=== PATIENT | female | born 1940 | race Caucasian/White ===

== ENCOUNTER 2018-05-25 14:28 | Inpatient (IN) | payer OTHER, BC ==
--- NOTE | 2018-05-25 14:36 | EDPHY ---
H & P Time Seen by Provider: 05/25/18 14:45 HPI/ROS: CHIEF COMPLAINT: Fall, facial trauma HISTORY OF PRESENT ILLNESS: The patient is a 78 y/o female with dementia arriving via EMS with her son for evaluation of facial trauma secondary to a fall this afternoon. She is unable to tell me what happened. Her son says she was walking away from him quickly because she didn't know who he was and tripped on a curb. He witnessed her strike her knee, possibly her chest, and then her face on the ground as she fell. She did not lose consciousness. She does not have any specific complaints at this time. Her son says it's very hard to tell if her mental status is worse than baseline or not. She is on a daily low-dose aspirin. Her son notes she struck her right hand on a bedpost 2 days ago and has had some localized swelling. REVIEW OF SYSTEMS: A ten point review of systems was performed and is negative with the exception of the items mentioned in the HPI. Past medical history: Advanced dementia possibly Alzheimer's, bipolar, hyperlipidemia, hypertension Past surgical history: noncontributory Family history: noncontributory Social history: Son at bedside. Visiting, lives in [facility] with 24-hour assistance. Former smoker 30 years ago. No recent alcohol use. Previously worked in real estate. Daughter by suicide 5 years ago. General Appearance: Alert. Vital signs reviewed. Head: 2cmx1.5cm swelling to glabella with overlying abrasion. No scalp tenderness. No palpable skull fracture. Eyes: Pupils equal and round, no conjunctival injection, no discharge. Anicteric. ENT, Mouth: Mucous membranes are moist, no oropharyngeal erythema or edema. Abrasion to bridge of nose and along right side of nose, no septal hematoma or deviation. No hemotympanum bilaterally. Node dental injury. Neck: No lymphadenopathy, supple, nontender to palpation over the cervical spine in the midline. Respiratory: Lungs are clear to auscultation; no wheezes, rales, or rhonchi. Cardiovascular: Regular rate and rhythm; no murmur, rub, or gallop. Gastrointestinal: Abdomen is soft and nontender, no masses or organomegaly, bowel sounds normal. Skin: Warm and dry, no rashes on exposed skin, normal color. Back: Nontender to palpation over the thoracolumbar spine. No CVAT. Extremities: No lower extremity edema, no calf tenderness or swelling. Right hand swollen with purple-brown ecchymosis, normal ROM of right wrist and all digits of right hand. Neurological: Alert and disoriented, likely at baseline. Moving all four extremities easily and equally. CARLOS. EOMI. Facial expressions symmetric. Tongue midline. Psychiatric: Normal affect. Constitutional: Initial Vital Signs Temperature (C) 36.0 C 05/25/18 14:38 Heart Rate 81 05/25/18 14:38 Respiratory Rate 18 05/25/18 14:38 Blood Pressure 134/84 H 05/25/18 14:38 O2 Sat (%) 90 L 05/25/18 14:38 O2 Delivery Mode Room Air Allergies/Adverse Reactions: No Known Allergies Allergy (Unverified 05/25/18 14:49) Home Medications: Medication Instructions Recorded Amlodipine Bes/Olmesartan Med 1 each PO DAILY 05/25/18 [Roberta 5-20 mg Tablet] Atorvastatin Calcium [Lipitor 20 20 mg PO DAILY 05/25/18 mg (*)] Cholecalciferol Vit D3 [Vitamin D3 1,000 units PO DAILY 05/25/18 (*)] Cyanocobalamin/Folic AC/Vit B6 1 each PO DAILY 05/25/18 [Folbee Tablet] Donepezil HCl [Aricept 5 MG (*)] 5 mg PO HS 05/25/18 Fesoterodine Fumarate [Toviaz (*)] 8 mg PO HS 05/25/18 Gabapentin [Neurontin 300 MG (*)] 300 mg PO HS 05/25/18 Gabapentin [Neurontin 300 MG (*)] 300 mg PO HS PRN 05/25/18 Memantine HCl [Namenda 5 mg (*)] 5 mg PO BID 05/25/18 Metoprolol Succinate Xr [Toprol Xl 50 mg PO DAILY 05/25/18 50 mg (*)] Nortriptyline HCl [Pamelor 25 mg 25 - 50 mg PO HS 05/25/18 (*)] OLANZapine [Zyprexa] 10 mg PO DAILY 05/25/18 Oxcarbazepine [Trileptal] 150 mg PO DAILY 05/25/18 Oxcarbazepine [Trileptal] 300 mg PO HS 05/25/18 Oxybutynin Chloride [Oxybutynin 15 mg PO DAILY 05/25/18 Chloride Er] Sennosides 8.6 mg PO 05/25/18 amLODIPine BESYLATE [Norvasc 10 mg 10 mg PO DAILY 05/25/18 (*)] traZODone [traZODONE 50MG (*)] 100 mg PO HS 05/25/18 Medical Decision Making - Diagnostics Imaging Results: Imaging Impressions Head CT 05/25/18 15:20 Impression: 1. Small frontal scalp hematoma. 2. No acute fracture or evidence of acute intracranial injury. Findings discussed with Emergency Department physician, Leticia Myers on 2017, 15:57. Imaging: Discussed imaging studies w/ director call Radiologist, I viewed and interpreted images myself ED Course/Re-evaluation: Plan for head CT and wound care. 1510: Spoke with patient's son outside the room. He says, "I want some guidance " regarding long-term placement, stabilization of her medications, and current plan. He initially planned to bring her to [facility] living here locally rather than attempting to set up care remotely in [place] where she normally lives. He is currently having her stay with him in [place] and he is providing 24-hour care for her, but the situation is unsustainable. He reports she can get agitated and frustrated easily. She is up most of the night. Today she became scared when she didn't recognize him as he tried to help her get into the car. This led to her walking away quickly and then tripping and getting injured. He says, "I think the right thing for her is to go to memory care." He would like her to be in this area, not in [place]. Plan to involve case management in determining care and facility options. She was initially evaluated for cognitive decline three years ago, at which time he was told that she likely had dementia. That diagnosis has become clear over the past couple of years. She is currently living in [place] with care at home. Head CT: negative She is noted to have a pulse ox of 90% at triage. [place] is [place] from [place]. Lungs are clear, respiratory rate is normal. I do not suspect pulmonary infection or heart failure. She is not complaining of feeling short of breath. Will recheck pulse oximetry. Spoke with hospitalist service. Dr. Mullen accepts admission. Differential Diagnosis: I considered a differential that includes but is not limited to skull or facial bone fracture, intracranial hemorrhage, CVA, laceration, infection, and dementia. Departure - Departure Disposition: [facility] In[facility] Acute Clinical Impression: Dementia Qualifiers: Dementia type: Alzheimer's disease Alzheimer's disease onset: unspecified onset Dementia behavioral disturbance: without behavioral disturbance Qualified Code(s): G30.9 - Alzheimer's disease, unspecified Condition: Fair Report Scribed for: Leticia Myers Report Scribed by: Dai Lamb Date of Report: 05/25/18 Time of Report: 14:57 Physician Review and Approval Statement: 05/25/18 14:36 Portions of this note were transcribed by the medical dir. I, Dr. Leticia Myers, personally performed the history, physical exam, and medical decision- making; and confirmed the accuracy of the information in the transcribed note.
[2018-05-25] MEDS ORDERED: ACETAMINOPHEN 325 MG TAB PO PRN (16:51)
[2018-05-25] MEDS ORDERED: ONDANSETRON 4 MG/2 ML VIAL IVP PRN (16:51)
[2018-05-25] MEDS ORDERED: ONDANSETRON DISINTEGRATING 4 MG TAB PO PRN (16:51)
--- NOTE | 2018-05-25 19:52 | GHP ---
[f rep st] HISTORY AND PHYSICAL DATE OF ADMISSION: 05/25/2018 CHIEF COMPLAINT: Agitation, fall. PRIMARY NEUROPSYCHIATRIST: Dr. Vickers, . PCP: Dr. Melissa Galo, . HPI: History is obtained from her son, she cannot fully recall with dementia. A 78-year-old female who just arrived in [place] with her son last night, because he is moving her here to help care for her. She became very agitated today and did not recognize him. He was trying to get her in the car, but she walked away quickly and tripped on the curb, hitting her knees and her head. She did not black out. She does not have any specific complaints upon my exam. Per son, she has not been sleeping for the last 3 weeks and recently hospitalized for a UTI. Her neuropsychologist increased some of her meds to help with sleep. He stayed in her room last night and she was up 9 times for urination. No nausea, vomiting, or diarrhea. In [place], she had 25/05 care. His plan was to have her admitted to [facility], but they did not have a bed available today. REVIEW OF SYSTEMS: I completed a 10-point review of systems, negative except noted in the HPI. PAST MEDICAL HISTORY: Dementia, hypothyroidism, insomnia. The son is unclear of full history. We will obtain records from PCP. PAST SURGICAL HISTORY: None. FAMILY HISTORY: Daughter committed suicide. SOCIAL HISTORY: Was living in [place] until yesterday. Son lives here in [place]. Former smoker 30 years ago. No recent alcohol or illicits. 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 HOME MEDICATIONS: Aspirin 81 daily, metoprolol 75 daily, Synthroid 88 mcg, Trileptal 150 daily, 300 mg at bedtime; Zyprexa 15 mg daily; Pamelor 50 mg at bedtime; gabapentin 300 mg at bedtime, 300 p.r.n.; Toviaz 8 mg at bedtime; Aricept 5 mg daily; vitamins; atorvastatin 20; amlodipine 10 daily. ALLERGIES: None. PHYSICAL EXAMINATION: VITAL SIGNS: Temperature 37.3, blood pressure 170/80, heart rate is in the 80s, respirations 16, 97% on room air. GENERAL: Well appearing, sitting in bed, no acute distress. HEENT: Abrasions over nose and forehead. Moist mucous membranes. CV: Regular rate and rhythm. LUNGS: Clear. ABDOMEN: Soft, nontender and nondistended. Positive bowel sounds. : No Gaviria. MUSCULOSKELETAL: Moving all 4 extremities. NEUROLOGIC: Two through 12 intact. PSYCH: She is alert, answering some questions appropriately , not agitated. SKIN: Has abrasion over right knee. LABS: Labs and UA are pending. ASSESSMENT/PLAN: 1. Alzheimer dementia with agitation: Case Management to meet with son tomorrow for placement in memory care unit. Currently not agitated. Resume home medications. Obtain records from her primary neuropsychiatrist, Dr. Vickers. 2. Fall: mechanical. CTH negative except for hematoma. She is walking around the room without assistance. 3. Hypothyroidism: Synthroid. 4. Hyperlipidemia: Statin. 5. Suspected hypertension. Metoprolol, Norvasc 6. Diet: Regular. 7. Deep venous thrombosis prophylaxis: Lovenox. DISPOSITION: The patient warrants inpatient admission for fall, evaluation for urinary tract infection and Case Management to assist with placement. /[id number]/MODL MTDD
[2018-05-25] MEDS: OXcarbazepine 300 MG TAB PO SCH (20:49)
[2018-05-25] MEDS ORDERED: NORTRIPTYLINE HCL 25 MG CAP PO SCH (21:00)
[2018-05-25] MEDS: MELATONIN 3 MG TAB PO SCH (23:13)
[2018-05-25] MEDS ORDERED: LORazepam 2 MG/ML INJ IVP ONE (23:54)
[2018-05-26] MEDS ORDERED: LORazepam 2 MG/ML INJ ONE (00:03)
[2018-05-26] MEDS ORDERED: LORazepam 2 MG/ML INJ IVP ONE (00:30)
[2018-05-26] MEDS ORDERED: OLANZapine 10 MG/2 ML VIAL IM ONE (00:31)
--- NOTE | 2018-05-26 02:12 | HOSPPROG ---
Hospitalist Progress Note Assessment/Plan: Hospitalist night float note Patient developed increasing agitation and restlessness over the course of the evening from time of admission. Patient is restless and she is not able to stay in her room. She is walking around the hallways alongside staff. She is not oriented to place and believes that she is in her home and that the nursing staff are intruding upon her space. she is demanding that they leave. She is intermittently yelling loudly in the hallway and nursing staff reported that she 2 staff members requiring security. Patient was given IV Ativan and subsequently a dose of 5 mg IM Zyprexa neither of which produce any notable response. Patient is routinely on 15 mg of Zyprexa p.o. However she is adamantly refusing any oral medications as she is very distressful of the nursing staff. It is unclear if she took her morning dose of Zyprexa before arriving to [place]. It is reported in the H&P however that patient has not slept in almost 3 weeks. Patient continues to try to get up out of bed. She is quite agile in quick on her feet. Attempts were made to contact the patient's son however there was no response. At this time for patient and staff safety it is felt she requires Two point soft limb restraints ordered. Patient is quite coordinated despite her declining memory she will likely to be able to remove a roll belt easily. Objective: Vital Signs Temp Pulse Resp BP Pulse Ox 36.8 C 74 18 156/84 H 90 L 05/25/18 22:47 05/25/18 22:47 05/25/18 22:47 05/25/18 22:47 05/25/18 22:47 Laboratory Results 05/25/18 17:15 05/25/18 17:15 ICD10 Worksheet Patient Problems: Problems Problem Status Onset Dementia Acute
[2018-05-26] MEDS: LEVOTHYROXINE 88 MCG TAB PO SCH (05:47)
--- NOTE | 2018-05-26 07:53 | HOSPPROG ---
Hospitalist Progress Note Assessment/Plan: Patient is a 78-year-old woman who has significant dementia. Her son moved her to [place]. She has not been sleeping for approximately 3 weeks and was recently hospitalized for urinary tract infection. Today is my 1st encounter with the patient. Chart reviewed. * Alzheimer dementia with agitation -it appears the patient needs placement -reviewed the patient's care with Dr. Wheeler and the patient was quite agitated last night and was a flight risk -have a call into psychiatry and neurology -her son, Connor, moved her here due to concern of her care in [place], he is fine with adjusting her meds -she took fall landing on her face -she is only oriented to herself, doesn't know who her son is * Mechanical Fall: -CT scan shows nothing acute * Hypothyroidism: Synthroid. * Hyperlipidemia: Statin. * Suspected hypertension. Metoprolol. * hx of bipolar disorder: difficult balance with treating her bipolar and severe dementia *Plan: will ask both neurology and psychiatry help manage her medications, she has both Bipolar disorder mixed w Alzheimer, hasn't slept in multiple nights. The son is very realistic about the balance of this. Have reviewed with him that many of the medications have black box warnings. He is aware and is fine with these medications. Spoke with psychiatry and Dr Bass will see her, left a message for Dr Salmeron to see her. He has requested for further eval by neurology and psychiatry here in [place]. Reviewed with the son and he is her MPOA, he wants her to be a DNR , Her PCP is Melissa Galo [phone] ( in [place]). If psychiatry and neurology aren't able to see today, will do a trial of Seroabram gaona. Subjective: Tiny smiles, says she isn't in pain. Objective: Vital Signs Temp Pulse Resp BP Pulse Ox 36.1 C 80 16 184/93 H 89 L 05/26/18 04:00 05/26/18 04:00 05/26/18 04:00 05/26/18 04:00 05/26/18 04:00 Laboratory Results 05/25/18 17:15 05/25/18 17:15 - Physical Exam Constitutional: no apparent distress, appears nourished Eyes: PERRL Ears, Nose, Mouth, Throat: hearing normal Cardiovascular: regular rate and rhythym Respiratory: no respiratory distress Gastrointestinal: normoactive bowel sounds Skin: warm, other (multiple bruising on her face, small hematoma on the forehead area) Musculoskeletal: full muscle strength Neurologic: other (alert, only oriented to herself) Psychiatric: poor insight, poor judgement, poor memory, other (impulsive) ICD10 Worksheet Patient Problems: Problems Problem Status Onset Dementia Acute
[2018-05-26] MEDS ORDERED: OLANZapine 10 MG TAB PO SCH (09:00)
[2018-05-26] MEDS ORDERED: METOPROLOL SUCCINATE XR 50 MG TAB PO SCH (09:00)
[2018-05-26] MEDS ORDERED: Herbals/Supplements -Info Only PO SCH (09:00)
[2018-05-26] MEDS: CYANOCOBALAMIN PO SCH (09:24)
[2018-05-26] MEDS: FOLIC AC PO SCH (09:24)
[2018-05-26] MEDS: VIT B6 PO SCH (09:24)
--- NOTE | 2018-05-26 10:21 | ASMTCASEMG ---
Living Arrangements What is your living Answers: With Child(bobby) arrangement? Who do you live with? Type Of Residence What kind of residence do Answers: House you live in? Type of Residence Facility Name Notes: Patient is here from [place] to visit with her son. She has dementia and her son would like to place her in a memory care unit here in [place]. Discharge Plan Comments Coordination Status Comments Notes: Patient is a 78yo female who was brought from [place] to [place] by her son as she has dementia. Patient's son has a plan to place her in [facility] for care here in [place]. Patient has been admitted for Alzheimer dementia with agitation, mechanical fall with hematoma on head, hypothyroidism, hyperlipidemia, hypertension. D/C plan will be SNF/memory care placement. CM will follow. Date Signed: 05/26/2018 10:20 AM Electronically Signed By:Cleopatra Whitman LCSW
[2018-05-26] MEDS: ASPIRIN EC 81 MG TAB PO SCH (10:22)
[2018-05-26] MEDS: CHOLECALCIFEROL VIT D3 1,000 UNITS TAB PO SCH (10:22)
[2018-05-26] MEDS: SENNOSIDES 1 TAB PO SCH (10:22)
[2018-05-26] MEDS: ATORVASTATIN CALCIUM 20 MG TAB PO SCH (10:22)
[2018-05-26] MEDS: METOPROLOL SUCCINATE XR 25 MG TAB PO SCH (10:23)
[2018-05-26] MEDS: OXcarbazepine 300 MG TAB PO SCH ×3 (10:24→23:37)
[2018-05-26] MEDS: DONEPEZIL HCL 5 MG TAB PO SCH (10:24)
[2018-05-26] MEDS: ENOXAPARIN 40 MG/0.4 ML SYR SC SCH (10:27)
--- NOTE | 2018-05-26 13:10 | PDMN ---
Medical Necessity Medical necessity: Pt meets IP criteria per & MCG [id number]; est los >2 mn for eval/tx of dementia w/agitation s/p mechanical fall; requiring further monitoring, therapies & CM consult for dc planning; comorbid advanced age; per H &P & order 05/25/18
[2018-05-26] MEDS ORDERED: HALOPERIDOL 1 MG TAB PO ONE (17:04)
[2018-05-26] MEDS: MELATONIN 3 MG TAB PO SCH ×2 (20:48→23:36)
[2018-05-26] MEDS: OLANZapine 5 MG TAB PO SCH ×2 (20:48→23:35)
[2018-05-26] MEDS: QUEtiapine FUMARATE 25 MG TAB PO SCH ×2 (20:48→23:36)
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
[2018-05-27] MEDS: LEVOTHYROXINE 88 MCG TAB PO SCH (06:18)
[2018-05-27] MEDS: QUEtiapine FUMARATE 25 MG TAB PO PRN ×2 (07:34→11:41)
[2018-05-27] MEDS: METOPROLOL SUCCINATE XR 25 MG TAB PO SCH (07:36)
[2018-05-27] MEDS: OXcarbazepine 300 MG TAB PO SCH ×2 (07:37→20:40)
[2018-05-27] MEDS: DONEPEZIL HCL 5 MG TAB PO SCH (07:38)
[2018-05-27] MEDS: CHOLECALCIFEROL VIT D3 1,000 UNITS TAB PO SCH (07:39)
[2018-05-27] MEDS: ASPIRIN EC 81 MG TAB PO SCH (07:40)
[2018-05-27] MEDS: ATORVASTATIN CALCIUM 20 MG TAB PO SCH (07:42)
[2018-05-27] MEDS: ENOXAPARIN 40 MG/0.4 ML SYR SC SCH (07:43)
[2018-05-27] MEDS: FOLIC AC PO SCH (07:43)
[2018-05-27] MEDS: SENNOSIDES 1 TAB PO SCH (07:43)
[2018-05-27] MEDS: CYANOCOBALAMIN PO SCH (07:43)
[2018-05-27] MEDS: VIT B6 PO SCH (07:43)
[2018-05-27] MEDS: OLANZapine 5 MG TAB PO SCH ×3 (08:20→20:41)
--- NOTE | 2018-05-27 09:10 | NEUROPROG ---
Assessment: HOSPITAL NEUROLOGY CONSULT REQUESTING: Celsa Lozoya NP REASON: assist with dementia HPI: 78 year old woman with a history of dementia and underlying psychiatric disorder , HTN, HLD who presented to the ED on 05/25 after a mechanical trip and fall with facial trauma. Patient was evaluated in ED with CT head wo showing no acute intracranial process. Patient's son, Connor, who brought her to the ED requested she be admitted for placement and also had expectations of further workup of her dementia with behavioral issues. I was able to speak with Connor via phone today. Patient was residing in [facility]. Connor had visited her a month ago relating to a stenting procedure needed after a UTI. It had become evident at that time that the patient was declining from a cognitive perspective. She was not aware that Connor was her son at times. Patient also seemed to not think her apartment was her own. He noted behaviors such as the patient trying to get dressed in the middle of the night and trying to leave the apartment for nonexistent appointment. She tends to wake at variable times in the night. Patient would become agitated and frustrated under these circumstances. Patient also having more episodes of paucity of speech, seemingly just not wanting to respond or talk, but no automatism or other adventitious movements. No indication of hallucinations, tremors, gait change/shuffling, limb rigidity, dream enactment. With the realization of cognitive decline, Connor decided to move her to [place] so he could supervise her more closely. Upon arriving, it became evident that [facility] was not going to be able to sustain caring for the patient. The patient has experienced multiple mechanical falls and with this most recent ED trip he had requested assistance with placement of the patient into memory care. He also told me he wanted a complete overview of her condition, including a specific diagnosis with subspecialists. I discussed the case with Celsa Lozoya NP, who was able to tell me she did relay to [facility] that we have limited resources in the hospital, particularly with relation to neuropsych testing and neuropsych resources. Celsa offered neurology and psychiatry consultations and related that the hospital setting would be for acute stabilization and safe placement. Connor and I did discuss this today - he is wanting neuropsych testing, subspecialty evaluation with geriatric psychiatry and admission to leslie psych inpatient unit, behavioral neurology/neuropsychiatry consult. He states he wants a specific diagnosis before the patient leaves and he wants follow-up appointments with specialists. Note that after admission relationship associate patient became agitated, pacing halls, yelling thinking she was in her apartment and yelling for all staff to get out of her house. ROS: As per the HPI, otherwise a complete 12 point ROS was performed and is negative ALLERGIES AND MEDS: As recorded in the EMR - reviewed and reconciled PFSH: As per the intake H&P by Dr. Mullen from 05/25 EXAM: VS reviewed in EMR GEN: WDWN sitting in NAD HEENT: some facial ecchymoses noted, sclera anicteric, conjunctiva not injected , MMM, oropharynx clear, no scalp tenderness NECK: supple, nontender, no meningismus CV: RRR s1 s2 wo m/r/c/g. Carotid pulses 2+ wo bruit NEURO: MS: awake, alert, oriented to self only. States we're in a "place for girls only and not boys." Poor attention. Paucity of spontaneous speech, but speech produced nondysarthric. Tends to just sit quietly - will answer inappropriately when encouraged. Able to name, read, repeat, difficulty describing specific use of objects, able to comprehend and follows appendicular commands with encouragement. Attends to both sides. Clear episodic/recent and even remote memory loss of casual conversation. Mood depressed. Unable to get a good sense of her fund of knowledge. CN: pupils 3mm round and reactive. Unable to visualize fundi. VFF. Primary gaze centered. Full ocular motility. Saccadic intrusions on smooth pursuit. Motor impersistence with eye movements. Facial sensation preserved. Face symmetric. Hearing grossly intact to finger rub. Palatoglossal movements intact. Shoulder shrug and head turn strong. MOTOR: normal bulk/tone. No adventitious movements. Full power throughout. SENSORY: intact/symmetric LT/PP in all extremities. No extinction. COORD: no ataxia FN/HS. Karine preserved. REFLEX: plantars down. No clonus. Absent ankle jerks, other DTRS 1/4. GAIT: deferred to PT safety eval DATA REVIEW: Labs reviewed in EMR PERSONALLY INTERPRETED RESULTS AND DATA: CT head wo - nothing acute, global volume loss, signal attenuation in the deep white matter most reflective of chronic microvascular ischemia. IMPRESSION AND RECOMMENDATIONS: // DEMENTIA WITH BEHAVIORAL DISTURBANCE // PSYCHIATRIC DISORDER Patient with progressive cognitive decline interfering with day-to-day functioning, ie dementia. Clearly having behavioral issues related to her dementing illness. Given clinical semiology suspect underlying Alzheimer pathology. This may be complicated by her suspected concomitant psych issue ( previously labeled bipolar, but Dr. Bass unsure about this). I don't find any indication in the history, exam, imaging to suggest something more sinister underlying like strokes or seizures. At this point would focus on optimizing behavioral medications with psychiatry. Cont to optimize vascular risk factors, as this can contribute to worsening dementia. Exercise delirium precautions (light on/window shade up from 0700- 2100, stimulate during day with TV/radio, family at bedside, sensory optimization (glasses, hearing aids), regular meal times, frequent orientation, OOB to chair during day, ambulate routinely if possible, nonpharmacologic sleep enhancement with cool/quiet/dark room). Nonpharmacologic behavioral interventions for any aberrant behaviors including distraction, reassurance, redirection. Avoid benzos, anticholinergics other drugs with high risk of paradoxical response or disinhibition. Follow up on B12/TSH and optimize as needed. Agree with placement into memory care - case management will be involved. Not sure inpatient OT cognitive eval will be terribly yielding or productive. Discussed with Connor that a more specific diagnosis would be rendered in the outpatient setting, as neuropsychology, behavioral neurology/neuropsychiatry, are not offered inpatient. He was quite demanding about having this done inpatient, and having the patient transferred to a leslie psych unit so these consults could be placed. I, again, reiterated that these were outpatient specialties. I did recommend he contact [facility] as they do have a behavioral neurology/neuropsychiatry clinic. I communicated that the role of hospitalization is for acute stabilization and safe placement and that psychiatry would be helping with medications and case management would be helping with finding placement. He was not satisfied with this response. I discussed the case and my conversation with Connor with Celsa Lozoya, who had nearly the same conversation with Connor yesterday. Case reviewed with oncoming hospitalist Michelle Riley, PHYLLIS. Sign off. Objective: Vital Signs Temp Pulse Resp BP Pulse Ox 36.8 C 83 16 150/92 H 91 L 05/27/18 08:00 05/27/18 09:06 05/27/18 09:06 05/27/18 09:06 05/27/18 09:06 Laboratory Results 05/25/18 17:15 05/25/18 17:15 05/26/18 05/27/18 05/28/18 05:59 05:59 05:59 Intake Total 1260 250 Balance 1260 250 Allergies/Adverse Reactions: No Known Allergies Allergy (Unverified 05/25/18 14:49)
[2018-05-27] MEDS ORDERED: SENNOSIDES 1 TAB PO ONE (14:02)
--- NOTE | 2018-05-27 14:16 | ASMTCMCOM ---
CM Note CM Note Notes: Patient will go to [facility] respite bed tomorrow AM. I spoke with Lucila, the coordinator there, and she will fax paperwork for hospitalist to fill out and fax back. She will speak with patient's son Connor and have him fill out add'l papework. I told her to anticipate patient between 10-12 tomorrow. I spoke with patient's son Connor about this plan and he is ok with it, including paying for wheelchair van transportation. We will help facilitate that tomorrow. Current CM Discharge plan: [facility] respite Date Signed: 05/27/2018 02:15 PM Electronically Signed By:Saskia Britt RN
--- NOTE | 2018-05-27 14:43 | HOSPPROG ---
Hospitalist Progress Note Assessment/Plan: Patient is a 78-year-old woman who has significant dementia. Her son moved her to [place]. She has not been sleeping for approximately 3 weeks and was recently hospitalized for urinary tract infection. Today is my 1st encounter with the patient. Chart reviewed. * Alzheimer dementia with agitation -it appears the patient needs placement -reviewed the patient's care with Dr. Bass and Dr Salmeron -her son, Connor, moved her here due to concern of her care in [place] -she took fall landing on her face * Mechanical Fall: -CT scan shows nothing acute * Hypothyroidism: -TSH elevated -will adjust dose of Synthroid. * Hyperlipidemia: -Statin. * Suspected hypertension. -Metoprolol. * hx of bipolar disorder: -difficult balance with treating her bipolar and severe dementia -appreciate Dr Bass *Plan: -she has both Bipolar disorder mixed w Alzheimer, -slept last night -The son is very realistic about the balance of this. -Have reviewed with him that many of the medications have black box warnings. -He is aware and is fine with these medications. -Reviewed with the son and he is her MPOA, he wants her to be a DNR , -Her PCP is Melissa Galo [phone] (in [place]) Subjective: Up in chair. Slept well last night. No pain. Objective: Vital Signs Temp Pulse Resp BP Pulse Ox 36.8 C 82 16 163/89 H 92 05/27/18 12:00 05/27/18 12:00 05/27/18 12:00 05/27/18 12:00 05/27/18 12:00 Laboratory Results 05/25/18 17:15 05/25/18 17:15 05/26/18 05/27/18 05/28/18 05:59 05:59 05:59 Intake Total 1260 250 Balance 1260 250 - Physical Exam Constitutional: appears nourished, not in pain, chronically ill appearing Eyes: PERRL, anicteric sclera, EOMI Ears, Nose, Mouth, Throat: moist mucous membranes, hearing normal, ears appear normal Cardiovascular: No JVD, No tachycardia, No edema Respiratory: no respiratory distress, no rales or rhonchi, reduced air movement Gastrointestinal: normoactive bowel sounds, No tenderness, No ascites Skin: warm, abrasion, erythema Musculoskeletal: normal joint ROM, no joint effusions, generalized weakness Neurologic: No AAOx3 Psychiatric: not anxious, poor insight, poor judgement, poor memory, No thought process linear ICD10 Worksheet Patient Problems: Problems Problem Status Onset Dementia Acute
--- NOTE | 2018-05-27 14:52 | WOCRNPDOC ---
WOCRN Advanced Assessment Note - Skin Integrity Problem, Advanced Assess Nose Abrasion Dressing Type: Open to Air Closure Description: Not Approximated Exudate Amount: Minimal Exudate Color: Red, Brown Exudate Characteristic(s): Bloody, Dried Integumentary Issue Intervention: Dressing Applied, Hydrogel Applied Kathleen Wound Tissue: Swollen, Painful/Tender Kathleen Wound Swelling: Mild Wound Bed Constitution: Scab, Dried Exudate Site Measurement - Head-to-Toe Length X Width X Depth (cm): 1.2x0.9xscab Skin Integrity Problem Comment: Patient had a fall resulting in multiple abrasions. Patient has 1:1 care due to dementia. Discussed patient plan of care with WENDIE Kruger. Wound care will not follow this wound. Please reconsult PRN. Plan of care discussed with WENDIE Gage, who took over care from Saskia. Right Knee Abrasion Dressing Type: Allevyn Life Dressing Description: Clean/Dry, Intact Exudate Amount: Minimal Exudate Characteristic(s): Dried, Serosanguinous Integumentary Issue Intervention: Visualized Under Dressing, Hydrogel Applied Kathleen Wound Tissue: Erythema, Swollen, Denuded, Painful/Tender Kathleen Wound Swelling: Mild Wound Bed Color: Byng, Red Wound Bed Constitution: Red/Byng - Non Granular Tissue Site Measurement - Head-to-Toe Length X Width X Depth (cm): 1.3x2.2x0.1 and 1.2x1.2x0.1 Skin Integrity Problem Comment: Wounds treated as one wound since they are only about 1.5cm apart with same etiology, and are not pressure related. Patient has dementia and had a fall, resulting in multiple abrasions. Patient said wounds were quite painful. Wound care will not follow these wounds. Please reconsult PRN. BISHNU Cortés in room for care. WENDIE Gage has taken over care from Arelis PRESSLEY, and plan of care discussed with Merari.
[2018-05-27] MEDS ORDERED: QUEtiapine FUMARATE 25 MG TAB PO SCH (15:13)
--- NOTE | 2018-05-27 15:16 | PDCONSULT ---
Disease Management Nurse Note: PSYCHIATRY CONSULT FOLLOW UP Slept well last night. tolerated Seroquel without incident. has been helpful as prn. rec: schedule seroquel 12.5mg with meals (since using about 2- 3x/day as prn) and increase HS dose to 25mg scheduled for BMD continue zyprexa 5mg tid. recommend titrate down and d/c as responds to seroquel as outpatient. continue off nortriptyline and gabapentin. these were added in the past month and TCA likely adding to confusion and wasn't helping sleep.
--- NOTE | 2018-05-27 15:50 | ASMTCMCOM ---
CM Note CM Note Notes: We are working toward getting patient discharged to [facility] tomorrow AM. Lucila from [facility] sent paperwork to be completed by PCP. Our hospitalists will not complete. I called patient's PCP Dr Galo in [facility] ([phone]) who is out of town until 05/31. I also called her psychiatrist Dr Vickers ([phone]) and left a message. In the meantime, we have scheduled her for an appointment with a [facility] primary care provider, Dr Harrington, at 10:30AM Thursday 05/31. Patient's son Connor is in full agreement with the plan and will communicate this to Lucila at [facility] when he goes to sign paperwork there this afternoon. Lucila is going to talk to her ED about whether they can admit under these circumstances. Case Management will follow. Date Signed: 05/27/2018 03:50 PM Electronically Signed By:Saskia Britt RN
[2018-05-27] MEDS ORDERED: hydrALAZINE 20 MG/ML VIAL IVP PRN (16:21)
[2018-05-27] MEDS: QUEtiapine FUMARATE 25 MG TAB PO SCH (18:05)
[2018-05-27] MEDS: MELATONIN 3 MG TAB PO SCH (20:41)
[2018-05-28] MEDS ORDERED: LEVOTHYROXINE 75 MCG TAB PO SCH (06:00)
[2018-05-28] MEDS ORDERED: LEVOTHYROXINE 88 MCG TAB PO SCH (06:00)
[2018-05-28] MEDS: QUEtiapine FUMARATE 25 MG TAB PO SCH (06:39)
[2018-05-28 08:25] VITALS: BP 160/94
[2018-05-28] MEDS: FOLIC AC PO SCH (09:01)
[2018-05-28] MEDS: CYANOCOBALAMIN PO SCH (09:01)
[2018-05-28] MEDS: VIT B6 PO SCH (09:01)
[2018-05-28] MEDS: ENOXAPARIN 40 MG/0.4 ML SYR SC SCH (09:03)
[2018-05-28] MEDS: METOPROLOL SUCCINATE XR 25 MG TAB PO SCH (09:03)
[2018-05-28] MEDS: DONEPEZIL HCL 5 MG TAB PO SCH (09:04)
[2018-05-28] MEDS: CHOLECALCIFEROL VIT D3 1,000 UNITS TAB PO SCH (09:04)
[2018-05-28] MEDS: ASPIRIN EC 81 MG TAB PO SCH (09:04)
[2018-05-28] MEDS: OXcarbazepine 300 MG TAB PO SCH (09:04)
[2018-05-28] MEDS: OLANZapine 5 MG TAB PO SCH (09:04)
[2018-05-28] MEDS: ATORVASTATIN CALCIUM 20 MG TAB PO SCH (09:04)
--- NOTE | 2018-05-28 09:46 | PDIAF ---
- Diagnosis Diagnosis: confusion Code Status: Do Not Resuscitate - Medication Management Discharge Medications: Medications to Continue on Transfer Aspirin EC [Aspirin EC 81 mg (*)] 81 mg PO DAILY 05/25/18 [Last Taken 05/25/18] Atorvastatin Calcium [Lipitor 20 mg (*)] 20 mg PO DAILY 05/25/18 [Last Taken Unknown] Cholecalciferol Vit D3 [Vitamin D3 (*)] 1,000 units PO DAILY 05/25/18 [Last Taken 05/25/18] Cyanocobalamin/Folic AC/Vit B6 [FOLBEE TABLET] 1 each PO DAILY 05/25/18 [Last Taken Unknown] Donepezil HCl [Aricept 5 MG (*)] 5 mg PO DAILY 05/25/18 [Last Taken 05/25/18] Levothyroxine [Synthroid 88 mcg (*)] 88 mcg PO DAILY06 05/25/18 [Last Taken ] Metoprolol Succinate Xr [Toprol Xl 25 mg (*)] 25 mg PO DAILY 05/25/18 [Last Taken 05/25/18] Oxcarbazepine [Trileptal] 150 mg PO DAILY 05/25/18 [Last Taken 05/25/18] Oxcarbazepine [Trileptal] 300 mg PO HS 05/25/18 [Last Taken 05/24/18] amLODIPine BESYLATE [Norvasc 10 mg (*)] 10 mg PO DAILY 05/25/18 [Last Taken Unknown] Acetaminophen [Tylenol 325mg (*)] 650 mg PO Q4HRS PRN tab 05/28/18 [Last Taken Unknown] Melatonin [Melatonin 3 MG (*)] 6 mg PO HS tab 05/28/18 [Last Taken Unknown] OLANZapine [OLANZapine (*)] 5 mg PO TID tab 05/28/18 [Last Taken Unknown] QUEtiapine FUMARATE [Seroquel 25 mg (*)] 12.5 mg PO AC tab 05/28/18 [Last Taken Unknown] QUEtiapine FUMARATE [Seroquel 25 mg (*)] 25 mg PO HS tab 05/28/18 [Last Taken Unknown] Discharge Medications: Refer to the Discharge Home Medication list for PRN reason. PICC Care - Routine: N/A - Orders Services needed: Home Care, Registered Nurse, Physical Therapy, Occupational Therapy Home Care Face to Face: I certify that this patient was under my care and that I had the required [id number] encounter meeting the encounter requirements on the discharge day. My findings support the fact that the patient is homebound as defined in Home Care Face to Face Continued: [facility] Chapter 7 Medicare Benefits Manual 30.1.1 , The condition of the patient is such that there exists a normal inability to leave home and consequently, leaving home would require a considerable and taxing effort. Additional Instructions: Follow up with urology as an outpatient for urinary stent removal. Placed in [facility] about a month ago. Follow up appointment Dr. Harrington of [facility] on ThursdayMay 31 at 10:30. please arrive 15 minutes earlier. The address is [address] [place] [address]. [id number] . - Follow Up Care Current Providers and Referrals: Patient,NotPresent [Unknown] - As per Instructions
--- NOTE | 2018-05-28 10:34 | ASMTDCNOTE ---
Case Management Discharge Discharge Order Complete? Answers: Yes Patient to Obtain Answers: Other Notes: [facility] Transportation Arranged Answers: Other Notes: [employer] [facility] Transport will Pick (Date 05/28/2018 11:00 AM & Time) Faxed Final Orders Answers: Yes Agency/Facility Transfer Answers: Yes Report Printed & Faxed to Receiving Agency Family Notified Answers: Yes Discharge Comments Notes: Pt met with product support representative from [facility]. Paperwork is completed. Pt will be picked up by [employer] at 11:00AM. Date Signed: 05/28/2018 10:34 AM Electronically Signed By:Marilee Fritz
--- NOTE | 2018-05-28 10:35 | ASMTLACE ---
LACE Length of stay for Answers: 3 days current admission Acuity / Level of Answers: Yes Care: Did the patient have an inpatient admission? Comorbidities - select Answers: Dementia all that apply Other Notes: HLD; HTN # of Emergency department Answers: 1-2 visits in the last 6 months Social determinants Answers: Mental health diagnosis (anxiety, depression, pers onality disorders, etc.) Score: 14 Date Signed: 05/28/2018 10:35 AM Electronically Signed By:Marilee Fritz
--- NOTE | 2018-05-28 13:29 | GDS ---
[f rep st] DISCHARGE SUMMARY DISCHARGE DIAGNOSES: 1. Alzheimer dementia with agitation. 2. Mechanical fall. 3. Hypothyroidism. 4. Hyperlipidemia. 5. History of bipolar disorder. 6. Hypertension. CONSULTATIONS: Dr. Bass of Psychiatry. STUDIES AND PROCEDURES DONE: CT of the head. PHYSICAL EXAM: GENERAL: The patient is alert. VITAL SIGNS: Afebrile at 37, pulse 86, respiratory rate 16, blood pressure is 160/94, she is saturating 90% on room air. I have seen and evaluated the patient on the day of discharge. HOSPITAL COURSE: The patient is a 78-year-old female brought to the hospital after suffering a mecha nical fall. She was evaluated and diagnosed with: 1. Mechanical fall. CT of her head was performed with nothing acute identified. 2. Alzheimer dementia with agitation. During this hospitalization, the patient received a consultat ion from Neurology as well as Psychiatry. Some of her medications were adjusted. Her condition is s ignificantly improved. She has less agitation. We have what appears to be baseline Alzheimer's belkis ntia. Long conversations have been had with the son and he is aware of this condition. The patient will require a memory care unit at the time of disposition. 3. Hypothyroidism. Continue her previously prescribed dose of Synthroid and have it followed in the outpatient setting. 4. Hyperlipidemia. Her statins have been continued. 5. Intermittent hypertension. This is difficult to evaluate given the patient's intermittent agitat ion. She may require further antihypertensive medications which can be added in the future. 6. History of bipolar disorder. Again, appreciate Dr. Bass' consultation. Her medications have b een adjusted. She does have a history of longstanding bipolar disorder with management by Psychiatry in [facility]. Her condition is stable at the time prior to disposition. DISPOSITION: The patient will be discharged to [facility] for further manageme nt and evaluation. FOLLOWUP: She will follow up with Dr. Tony for primary care as well as the need for followup with Declan barrow in the outpatient setting as she recently had a urinary stent placed prior to moving to [facility]. This stent does need to be removed in the future and TSH evaluation to be done. There are no ot her pending studies. DISCHARGE MEDICATIONS: Please refer to EMR form. The patient's Toviaz, Neurontin, Toprol-XL, nortri ptyline, Zyprexa have all been discontinued or adjusted prior to disposition. New medications includ e Seroquel and decreased dose of Lopressor. I spent greater than 35 minutes in the care, coordination, and management of patient's disposition, d iscussing with the patient's son, as well as the patient in conference and the case management. /[id number]/MODL
--- NOTE | 2018-05-28 15:54 | ASDISCHSUM ---
Discharge Information Plan Status:Assisted Living Medically Cleared to Leave:05/28/2018 Discharge Date:05/28/2018 11:13 AM CM D/C Disposition:Assisted Living ADT D/C Disposition:HHSNOTBCH Projected Discharge Date:05/28/2018 11:00 AM Transportation at D/C:Wheelchair Van Discharge Delay Reason: Follow-Up Date:05/28/2018 11:00 AM Discharge Slot: Final Diagnosis: Placement Information Referral Type:Assisted Living Residence Referral ID:[id number] Provider Name:[facility] Address 1:[address] [place] [address] Phone Number: Address 2: Fax Number: [facility]:[place] Selection Factors: State:[place] Referral Type:*Home Health Care Services Referral ID:[id number] Provider Name:[facility] ([facility]) Address 1:[address] [address] Address 2: City:[place] Selection Factors: State:[place] Patient Contact Information Contact Name:SETHHANAU Relationship:Fermín Address: Work Phone: City:[place] Alternate Phone: [facility] Code:[place] Email: Financial Information Financial Class:Medicare Primary Plan Desc:MEDICARE INPATIENT Primary Plan Number:[id number] Secondary Plan Desc: OUT OF [facility] Secondary Plan Number:[id number] Assessment Information LACE LACE Length of stay for Answers: 3 days current admission Acuity / Level of Answers: Yes Care: Did the patient have an inpatient admission? Comorbidities - select Answers: Dementia all that apply Other Notes: HLD; HTN # of Emergency department Answers: 1-2 visits in the last 6 months Social determinants Answers: Mental health diagnosis (anxiety, depression, pers onality disorders, etc.) Score: 14 Date Signed: 05/28/2018 10:35 AM Electronically Signed By:Marilee Fritz [facility] Initial CM Assessment Living Arrangements What is your living Answers: With Child(bobby) arrangement? Who do you live with? Type Of Residence What kind of residence do Answers: House you live in? Type of Residence Facility Name Notes: Patient is here from [place] to visit with her son. She has dementia and her son would like to place her in a memory care unit here in [place]. Discharge Plan Comments Coordination Status Comments Notes: Patient is a 78yo female who was brought from [place] to [place] by her son as she has dementia. Patient's son has a plan to place her in Post Memory Unit for care here in [place]. Patient has been admitted for Alzheimer dementia with agitation, mechanical fall with hematoma on head, hypothyroidism, hyperlipidemia, hypertension. D/C plan will be SNF/memory care placement. CM will follow. Date Signed: 05/26/2018 10:20 AM Electronically Signed By:Cleopatra Whitman LCSW [facility] CM Progress Note CM Note CM Note Notes: Patient will go to [facility] bed tomorrow AM. I spoke with Lucila, the coordinator there, and she will fax paperwork for hospitalist to fill out and fax back. She will speak with patient's son Connor and have him fill out add'l papework. I told her to anticipate patient between 10-12 tomorrow. I spoke with patient's son Connor about this plan and he is ok with it, including paying for wheelchair van transportation. We will help facilitate that tomorrow. Current CM Discharge plan: [facility] respite Date Signed: 05/27/2018 02:15 PM Electronically Signed By:Saskia Britt RN [facility] CM Progress Note CM Note CM Note Notes: We are working toward getting patient discharged to [facility] tomorrow AM. Lucila from [facility] sent paperwork to be completed by PCP. Our hospitalists will not complete. I called patient's PCP Dr Galo in [facility] ([phone]) who is out of town until 05/31. I also called her psychiatrist Dr Vickers ([phone]) and left a message. In the meantime, we have scheduled her for an appointment with a [facility] primary care provider, Dr Harrington, at 10:30AM Thursday 05/31. Patient's son Connor is in full agreement with the plan and will communicate this to Lucila at [facility] when he goes to sign paperwork there this afternoon. Lucila is going to talk to her ED about whether they can admit under these circumstances. Case Management will follow. Date Signed: 05/27/2018 03:50 PM Electronically Signed By:Saskia Britt RN Case Management Discharge Plan Note Case Management Discharge Discharge Order Complete? Answers: Yes Patient to Obtain Answers: Other Notes: [facility] Transportation Arranged Answers: Other Notes: [facility] will Pick (Date 05/28/2018 11:00 AM & Time) Faxed Final Orders Answers: Yes Agency/Facility Transfer Answers: Yes Report Printed & Faxed to Receiving Agency Family Notified Answers: Yes Discharge Comments Notes: Pt met with automotive leasing sales representative from [employer]. Paperwork is completed. Pt will be picked up by [employer] [facility] at 11:00AM. Date Signed: 05/28/2018 10:34 AM Electronically Signed By:Marilee Fritz Intervention Information Intervention Type:IM-Pt. Not Available Date of Service:05/28/2018 09:49 AM Patient Type:Inpatient Staff Member:Yessi Mccall Hours: Discipline: Severity: Comment:Patient has advanced dementia.
== END 2018-05-28 11:13 | disposition home health service (06) | DRG 57 ==
LOC: F3E 18:02
PROVIDERS: ADMIT Internal Medicine; ATTEND Internal Medicine
DX: G30.1 Alzheimer's disease with late onset (principal); F02.81 Dementia in other diseases classified elsewhere, unspecified severity, with behavioral disturbance; Z78.1 Physical restraint status; S00.83XA Contusion of other part of head, initial encounter; W10.1XXA Fall (on)(from) sidewalk curb, initial encounter; Y92.480 Sidewalk as the place of occurrence of the external cause; Y99.8 Other external cause status; E03.9 Hypothyroidism, unspecified; I10 Essential (primary) hypertension; F31.9 Bipolar disorder, unspecified; Z87.891 Personal history of nicotine dependence
CPT/HCPCS: 82607-90; 84481-90; J0360; J1650; J2060